=== PATIENT | male | born 1980 | race Two or more races ===

== ENCOUNTER 2017-11-27 19:26 | Emergency (ER) | payer OTHER ==
[~2017-11-27] VITALS: Ht 172.7 cm; Wt 74.8 kg
[2017-11-27 19:26] VITALS: BP 138/86
== END 2017-11-27 22:22 | disposition home or self-care (01) ==
LOC: ER 19:29
DX: S20.212A Contusion of left front wall of thorax, initial encounter (principal); V49.69XA Unspecified car occupant injured in collision with other motor vehicles in traffic accident, initial encounter; Y93.89 Activity, other specified; Y92.413 State road as the place of occurrence of the external cause; Y99.8 Other external cause status
CPT/HCPCS: 99283; A4606; Z7610